=== PATIENT | female | born 1970 | race Hispanic/Latino ===

== ENCOUNTER 2017-06-23 00:26 | Emergency (ER) | payer MEDICARE, MEDICAID ==
[2017-06-23 03:15] VITALS: BP 140/89; PULSE 89; RESP 16; TEMP 98; O2SAT 98
--- NOTE | 2017-06-23 04:27 | ED PDOC ---
HPI: General Adult Time Seen by Provider: 06/23/17 03:16 Chief Complaint (Nursing): Lower Extremity Problem/Injury History Per: Patient Additional Complaint(s): Pt. c/o b/l localized ankle pain. States she does walk a lot and has been having this pain for >2 months. Denies trauma, calf pain, numbness, tingling, chest pain, SOB. Past Medical History Reviewed: Historical Data, Nursing Documentation, Vital Signs Vital Signs: Last Vital Signs Temp 98.0 F 06/23/17 03:13 Pulse 89 06/23/17 03:13 Resp 16 06/23/17 03:13 BP 140/89 06/23/17 03:13 Pulse Ox 98 06/23/17 03:13 - Family History Family History: States: No Known Family Hx - Allergies Allergies/Adverse Reactions: Allergies Allergy/AdvReac Type Severity Reaction Status Date / Time No Known Allergies Allergy Verified 06/23/17 03:15 Review of Systems ROS Statement: Except As Marked, All Systems Reviewed And Found Negative Physical Exam - Physical Exam Appears: Positive for: Well, Non-toxic, No Acute Distress Skin: Positive for: Normal Color, Warm. Negative for: Rash Pulses-Dorsalis Pedis (L): 2+ Pulses-Dorsalis Pedis (R): 2+ Extremity: Positive for: Normal ROM (FROM actively of both ankles), Other (both ankles without swelling, tenderness, warmth, erythema, or deformity). Negative for: Pedal Edema (b/l), Calf Tenderness (b/l) Neurologic/Psych: Positive for: Alert, Oriented - ECG O2 Sat by Pulse Oximetry: 98 - Progress ED Course And Treament: Tylenol 975mg PO ordered. Pt. instructed to f/u with [facility] or podiatry clinic for further evaluation. Disposition - Clinical Impression Clinical Impression: Ankle pain - Patient ED Disposition Is Patient to be Admitted: No - Disposition Referrals: [facility] [Outside] Podiatry Clinic [Outside] Disposition: Routine/Home Disposition Time: 02:30 Condition: STABLE Instructions: Joint Pain Print Language: DANISH
== END 2017-06-23 05:37 | disposition home or self-care (01) ==
LOC: H.ER 00:26
DX: M25.571 Pain in right ankle and joints of right foot (principal); M25.572 Pain in left ankle and joints of left foot

== ENCOUNTER 2017-08-16 01:35 | Emergency (ER) | payer MEDICARE, MEDICAID ==
[2017-08-16 01:36] VITALS: BMI 34.4
[2017-08-16 01:56] VITALS: BP 136/83; PULSE 74; RESP 17; TEMP 97.8; O2SAT 98
--- NOTE | 2017-08-16 02:01 | ED PDOC ---
Lower Extremity Pain/Injury Time Seen by Provider: 08/16/17 01:54 Chief Complaint (Nursing): Lower Extremity Problem/Injury Chief Complaint (Provider): leg pain History Per: Patient Additional Complaint(s): 47 year old non-domiciled female presents with right leg pain that started earlier today. Patient denies any trauma or injury. Patient did not take any meds for pain relief. Patient is well known to ED for frequent visits. Past Medical History Reviewed: Historical Data, Nursing Documentation, Vital Signs - Medical History PMH: Bipolar Disorder, Depression, HTN, Hypothyroidism, Schizophrenia - Surgical History Surgical History: Cholecystectomy - Family History Family History: States: No Known Family Hx - Living Arrangements Living Arrangements: Other (non-domiciled) - Social History Current smoker - smoking cessation education provided: No Alcohol: None Drugs: Denies - Home Medications Home Medications: Ambulatory Orders Medication Instructions Recorded hydroCHLOROthiazide [Hydrodiuril] 25 mg PO DAILY #30 tab 05/05/17 Hydrochlorothiazide [Microzide] 25 mg PO DAILY #60 cap 07/11/17 Potassium Chloride 10 meq PO DAILY #30 capsule.er 07/11/17 Azithromycin [Zithromax] 250 mg PO DAILY #6 tab 07/25/17 DiphenhydrAMINE [Benadryl] 25 mg PO Q6H #1 bottle 07/25/17 Hydrocortisone [Hydrocortisone 1 applic TOP TID #1 tube 07/25/17 2.5% Cream] Ibuprofen [Motrin] 600 mg PO Q6 PRN #20 tab 08/16/17 - Allergies Allergies/Adverse Reactions: Allergies Allergy/AdvReac Type Severity Reaction Status Date / Time divalproex sodium Allergy RASH Verified 07/25/17 21:28 [From Depakote] haloperidol [From Haldol] Allergy RASH Verified 07/25/17 21:28 haloperidol lactate Allergy RASH Verified 07/25/17 21:28 [From Haldol] olanzapine [From Zyprexa] Allergy RASH Verified 07/25/17 21:28 risperidone [From Risperdal] Allergy RASH Verified 07/25/17 21:28 Wells Criteria for PE - Wells Criteria for Pulmonary Embolism Clinical Signs and Symptoms of DVT: No P.E is #1 Diagnosis, or Equally Likely: No Heart Rate >100: No Immobilization at least 3 days;Surgery previous 4 weeks: No Previous, objectively diagnosed PE or DVT: No Hemoptysis: No Malignancy w/treatment within 6 months, or palliative: No Total Score: 0 Review of Systems ROS Statement: Except As Marked, All Systems Reviewed And Found Negative Musculoskeletal: Positive for: Other (right leg pain x 1 day, no trauma or injury) Physical Exam - Reviewed Nursing Documentation Reviewed: Yes Vital Signs Reviewed: Yes - Physical Exam Appears: Positive for: Well, Non-toxic, No Acute Distress Skin: Negative for: Rash Eye Exam: Positive for: Normal appearance Cardiovascular/Chest: Positive for: Regular Rate, Rhythm Respiratory: Positive for: Normal Breath Sounds Extremity: Positive for: Other (full rom right lower extremity, no calf swelling or tenderness, normal distal sensation) Neurologic/Psych: Positive for: Alert, Oriented - ECG O2 Sat by Pulse Oximetry: 98 Pulse Ox Interpretation: Normal Medical Decision Making Medical Decision Makin47 year old with right leg pain, denies trauma Plan: PO motrin Patient given rx motrin, she was referred to clinic for follow up. Disposition - Clinical Impression Clinical Impression: Right leg pain - Patient ED Disposition Is Patient to be Admitted: No Counseled Patient/Family Regarding: Diagnosis, Need For Followup, Rx Given - Disposition Referrals: [facility] [Outside] Disposition: Routine/Home Disposition Time: 02:13 Condition: STABLE Additional Instructions: Take rx meds as directed as needed for pain. Follow up with clinic in 2-3 days. Prescriptions: Ibuprofen [Motrin] 600 mg PO Q6 PRN #20 tab PRN Reason: Pain, Moderate (4-7) Instructions: Muscle and Bone Pain (DC) Forms: [employer] (Icelandic)
== END 2017-08-16 02:20 | disposition home or self-care (01) ==
LOC: H.ER 01:35
DX: M79.604 Pain in right leg (principal); Z86.59 Personal history of other mental and behavioral disorders; I10 Essential (primary) hypertension; E03.9 Hypothyroidism, unspecified

== ENCOUNTER 2017-09-14 00:55 | Emergency (ER) | payer MEDICARE, MEDICAID ==
[2017-09-14 00:56] VITALS: BMI 34.4
[2017-09-14 01:10] VITALS: RESP 16; TEMP 98.5
--- NOTE | 2017-09-14 02:36 | ED PDOC ---
HPI: Hypertension/Hypotension Time Seen by Provider: 09/14/17 01:41 Chief Complaint (Nursing): High Blood Pressure History Per: Patient History/Exam Limitations: no limitations Additional Complaint(s): 47 yo F w/ PMH of HTN, presents requesting for a refill of her HCTZ 25 mg PO daily and KCl 10mEq PO daily. States that she ran out of both yesterday. Denies any headache, dizziness, CP, SOB, palpitations, N/V. Has no additional complaints. Past Medical History Vital Signs: Last Vital Signs Temp 98.5 F 09/14/17 01:08 Pulse 77 09/14/17 01:08 Resp 16 09/14/17 01:08 BP 152/104 H 09/14/17 01:08 Pulse Ox 96 09/14/17 01:08 - Medical History PMH: Bipolar Disorder, Depression, HTN, Hypothyroidism, Schizophrenia Denies: Diabetes, Hepatitis, HIV, Chronic Kidney Disease, Seizures, Sexually Transmitted Disease - Surgical History Surgical History: Cholecystectomy - Family History Family History: States: Unknown Family Hx - Home Medications Home Medications: Ambulatory Orders Medication Instructions Recorded hydroCHLOROthiazide [Hydrodiuril] 25 mg PO DAILY #30 tab 05/05/17 Hydrochlorothiazide [Microzide] 25 mg PO DAILY #60 cap 07/11/17 Potassium Chloride 10 meq PO DAILY #30 capsule.er 07/11/17 Azithromycin [Zithromax] 250 mg PO DAILY #6 tab 07/25/17 DiphenhydrAMINE [Benadryl] 25 mg PO Q6H #1 bottle 07/25/17 Hydrocortisone [Hydrocortisone 1 applic TOP TID #1 tube 07/25/17 2.5% Cream] Ibuprofen [Motrin] 600 mg PO Q6 PRN #20 tab 08/16/17 Potassium Chloride [Klor-Con 10 meq PO DAILY #30 capsule.er 09/14/17 Sprinkle] hydroCHLOROthiazide [Hydrodiuril] 25 mg PO DAILY #30 tab 09/14/17 - Allergies Allergies/Adverse Reactions: Allergies Allergy/AdvReac Type Severity Reaction Status Date / Time divalproex sodium Allergy RASH Verified 07/25/17 21:28 [From Depakote] haloperidol [From Haldol] Allergy RASH Verified 07/25/17 21:28 haloperidol lactate Allergy RASH Verified 07/25/17 21:28 [From Haldol] olanzapine [From Zyprexa] Allergy RASH Verified 07/25/17 21:28 risperidone [From Risperdal] Allergy RASH Verified 07/25/17 21:28 Review of Systems Constitutional: Negative for: Fever, Malaise Cardiovascular: Negative for: Chest Pain, Palpitations, Edema Respiratory: Negative for: Cough, Shortness of Breath Musculoskeletal: Negative for: Neck Pain, Back Pain Skin: Negative for: Rash Neurological: Negative for: Weakness, Numbness, Headache, Dizziness Physical Exam - Reviewed Vital Signs Reviewed: Yes - Physical Exam Appears: Positive for: Well, Non-toxic, No Acute Distress Head Exam: Positive for: ATRAUMATIC, NORMAL INSPECTION, NORMOCEPHALIC Skin: Positive for: Normal Color, Warm, DRY Eye Exam: Positive for: EOMI, Normal appearance, PERRL ENT: Positive for: Normal ENT Inspection Neck: Positive for: Normal, Painless ROM Cardiovascular/Chest: Positive for: Regular Rate, Rhythm Respiratory: Positive for: CNT, Normal Breath Sounds Gastrointestinal/Abdominal: Positive for: Normal Exam, Soft Back: Positive for: Normal Inspection Extremity: Positive for: Normal ROM. Negative for: Tenderness, Swelling Neurologic/Psych: Positive for: Alert, freight associate II-XII, Oriented. Negative for: Motor/Sensory Deficits, Facial Droop - ECG O2 Sat by Pulse Oximetry: 96 Medical Decision Making Medical Decision Making: Patient instructed to follow-up with pmd or the clinic in 1-2 days without fail. Rx refills provided. Return to the emergency room at any time for any new or worsening symptoms. Verbalized and repeated discharge instructions and plan. I have given the patient opportunity to ask any additional questions. Disposition - Clinical Impression Clinical Impression: Hypertension - Patient ED Disposition Is Patient to be Admitted: No Counseled Patient/Family Regarding: Diagnosis, Need For Followup, Rx Given - Disposition Referrals: [facility] [Outside] Disposition: Routine/Home Disposition Time: 02:15 Condition: STABLE Prescriptions: hydroCHLOROthiazide [Hydrodiuril] 25 mg PO DAILY #30 tab Potassium Chloride [Klor-Con Sprinkle] 10 meq PO DAILY #30 capsule.er Instructions: High Blood Pressure (DC), Low Salt Diet Forms: [employer] (Czech) - PA / [employer]HANGER [employer]INTER / Resident Statement MD/DO has reviewed & agrees with the documentation as recorded.
[2017-09-14 02:51] VITALS: BP 156/97; PULSE 63
[2017-09-14 03:48] VITALS: O2SAT 96
== END 2017-09-14 03:15 | disposition home or self-care (01) ==
LOC: H.ER 00:55
DX: I10 Essential (primary) hypertension (principal); E03.9 Hypothyroidism, unspecified; F20.9 Schizophrenia, unspecified; F31.9 Bipolar disorder, unspecified

== ENCOUNTER 2017-10-18 21:58 | Emergency (ER) | payer MEDICAID ==
--- NOTE | 2017-10-18 23:06 | ED PDOC ---
HPI: General Adult Time Seen by Provider: 10/18/17 23:05 Chief Complaint (Provider): med refill History Per: Patient Additional Complaint(s): 47-year-old female presents to emergency department requesting refill of HTN med. Patient takes HCTZ 25 mg PO daily. She took last dose today and offers no acute complaints. Past Medical History Reviewed: Historical Data, Nursing Documentation, Vital Signs Vital Signs: Last Vital Signs Temp 97.9 F 10/18/17 23:08 Pulse 78 10/18/17 23:08 Resp 18 10/18/17 23:08 BP 154/90 H 10/18/17 23:08 Pulse Ox 99 10/18/17 23:08 - Medical History PMH: HTN - Family History Family History: States: No Known Family Hx - Living Arrangements Living Arrangements: Other (non-domiciled) - Social History Current smoker - smoking cessation education provided: No Alcohol: None Drugs: Denies - Home Medications Home Medications: Ambulatory Orders Medication Instructions Recorded hydroCHLOROthiazide [Hydrodiuril] 25 mg PO DAILY #30 tab 10/18/17 - Allergies Allergies/Adverse Reactions: Allergies Allergy/AdvReac Type Severity Reaction Status Date / Time divalproex sodium Allergy SWELLING Verified 10/18/17 23:08 [From Depakote] Review of Systems ROS Statement: Except As Marked, All Systems Reviewed And Found Negative Constitutional: Negative for: Fever Eyes: Negative for: Vision Change Cardiovascular: Negative for: Chest Pain Gastrointestinal: Negative for: Nausea, Vomiting Neurological: Negative for: Headache, Dizziness Physical Exam - Reviewed Nursing Documentation Reviewed: Yes Vital Signs Reviewed: Yes - Physical Exam Appears: Positive for: Well, Non-toxic, No Acute Distress Skin: Positive for: Normal Color. Negative for: Rash Eye Exam: Positive for: Normal appearance Cardiovascular/Chest: Positive for: Regular Rate, Rhythm Respiratory: Positive for: Normal Breath Sounds. Negative for: Respiratory Distress Neurologic/Psych: Positive for: Alert, Oriented - ECG O2 Sat by Pulse Oximetry: 99 Pulse Ox Interpretation: Normal Medical Decision Making Medical Decision Makin47 year old here for med refill Patient was given rx HCTZ 25 mg PO daily. She was referred to clinic for follow up. Disposition - Clinical Impression Clinical Impression: Medicine refill - Patient ED Disposition Is Patient to be Admitted: No - Disposition Referrals: [facility] [Outside] Disposition: Routine/Home Disposition Time: 23:06 Condition: STABLE Additional Instructions: TAKE RX MEDS DIRECTED. FOLLOW UP WITH CLINIC. Prescriptions: hydroCHLOROthiazide [Hydrodiuril] 25 mg PO DAILY #30 tab Instructions: High Blood Pressure in Adults
[2017-10-18 23:12] VITALS: BP 154/90; PULSE 78; RESP 18; TEMP 97.9; O2SAT 99
== END 2017-10-18 23:24 | disposition home or self-care (01) ==
LOC: MERGE 21:58 → H.ER 21:58
DX: Z76.0 Encounter for issue of repeat prescription (principal); I10 Essential (primary) hypertension

== ENCOUNTER 2017-11-19 01:08 | Emergency (ER) | payer MEDICARE, MEDICAID ==
[2017-11-19 01:08] VITALS: BMI 34.4
[2017-11-19 01:20] VITALS: BP 137/94; PULSE 63; RESP 16; TEMP 98; O2SAT 98
--- NOTE | 2017-11-19 01:38 | ED PDOC ---
HPI: General Adult Time Seen by Provider: 11/19/17 01:30 Chief Complaint (Nursing): Med Refill Chief Complaint (Provider): medication refill History Per: Patient History/Exam Limitations: no limitations Additional Complaint(s): 47 y/o female presents for medication refill for her hydrochlorothiazide blood pressure medication. Patient denies acute medical or psychiatric complaints. Past Medical History Reviewed: Historical Data, Nursing Documentation, Vital Signs Vital Signs: Last Vital Signs Temp 98 F 11/19/17 01:19 Pulse 63 11/19/17 01:19 Resp 16 11/19/17 01:19 BP 137/94 H 11/19/17 01:19 Pulse Ox 98 11/19/17 01:40 - Medical History PMH: Bipolar Disorder, Depression, HTN, Hypothyroidism, Schizophrenia Denies: Diabetes, Hepatitis, HIV, Chronic Kidney Disease, Seizures, Sexually Transmitted Disease - Surgical History Surgical History: Cholecystectomy - Family History Family History: States: Unknown Family Hx - Home Medications Home Medications: Ambulatory Orders Medication Instructions Recorded hydroCHLOROthiazide [Hydrodiuril] 25 mg PO DAILY #30 tab 05/05/17 Hydrochlorothiazide [Microzide] 25 mg PO DAILY #60 cap 07/11/17 Potassium Chloride 10 meq PO DAILY #30 capsule.er 07/11/17 Azithromycin [Zithromax] 250 mg PO DAILY #6 tab 07/25/17 DiphenhydrAMINE [Benadryl] 25 mg PO Q6H #1 bottle 07/25/17 Hydrocortisone [Hydrocortisone 1 applic TOP TID #1 tube 07/25/17 2.5% Cream] Ibuprofen [Motrin] 600 mg PO Q6 PRN #20 tab 08/16/17 Potassium Chloride [Klor-Con 10 meq PO DAILY #30 capsule.er 09/14/17 Sprinkle] hydroCHLOROthiazide [Hydrodiuril] 25 mg PO DAILY #30 tab 09/14/17 hydroCHLOROthiazide [Hydrodiuril] 25 mg PO DAILY #30 tab 10/18/17 hydroCHLOROthiazide [Hydrodiuril] 25 mg PO DAILY #15 tab 11/19/17 - Allergies Allergies/Adverse Reactions: Allergies Allergy/AdvReac Type Severity Reaction Status Date / Time divalproex sodium Allergy RASH Verified 11/19/17 01:18 [From Depakote] haloperidol [From Haldol] Allergy RASH Verified 11/19/17 01:18 haloperidol lactate Allergy RASH Verified 11/19/17 01:18 [From Haldol] olanzapine [From Zyprexa] Allergy RASH Verified 11/19/17 01:18 risperidone [From Risperdal] Allergy RASH Verified 11/19/17 01:18 Review of Systems ROS Statement: Except As Marked, All Systems Reviewed And Found Negative Physical Exam - Reviewed Nursing Documentation Reviewed: Yes Vital Signs Reviewed: Yes - Physical Exam Appears: Positive for: Well, Non-toxic, No Acute Distress (sleeping) Head Exam: Positive for: ATRAUMATIC, NORMAL INSPECTION, NORMOCEPHALIC Skin: Positive for: Normal Color Eye Exam: Positive for: Normal appearance ENT: Positive for: Normal ENT Inspection Cardiovascular/Chest: Positive for: Regular Rate, Rhythm Respiratory: Positive for: Normal Breath Sounds Gastrointestinal/Abdominal: Positive for: Normal Exam Back: Positive for: Normal Inspection Extremity: Positive for: Normal ROM Neurologic/Psych: Positive for: Alert, Oriented - ECG O2 Sat by Pulse Oximetry: 98 - Progress ED Course And Treament: Patient educated on findings, rx hctz provided Advised follow up PMD 2-3 days Return precautions given Disposition - Clinical Impression Clinical Impression: Medication refill - Patient ED Disposition Is Patient to be Admitted: No Counseled Patient/Family Regarding: Diagnosis, Need For Followup, Rx Given - Disposition Disposition: Routine/Home Disposition Time: 01:41 Condition: GOOD Prescriptions: hydroCHLOROthiazide [Hydrodiuril] 25 mg PO DAILY #15 tab Instructions: Hydrochlorothiazide
== END 2017-11-19 02:12 | disposition home or self-care (01) ==
LOC: H.ER 01:08
DX: Z76.0 Encounter for issue of repeat prescription (principal); E03.9 Hypothyroidism, unspecified; F20.9 Schizophrenia, unspecified; F31.9 Bipolar disorder, unspecified; I10 Essential (primary) hypertension

== ENCOUNTER 2017-12-06 22:17 | Emergency (ER) | payer MEDICARE, MEDICAID ==
[2017-12-06 22:17] VITALS: BMI 34.4
--- NOTE | 2017-12-06 23:36 | ED PDOC ---
HPI: Skin/Bite Injury Time Seen by Provider: 12/06/17 23:10 Chief Complaint (Nursing): Abnormal Skin Integrity Chief Complaint (Provider): Rash History Per: Patient Additional Complaint(s): Pt is a 47 yo female, well known to ED staff, presents to ED with complaints of itchy red rash to her neck after wearing a fake gold necklace. No medications taken thus far. Past Medical History Reviewed: Nursing Documentation, Vital Signs Vital Signs: Last Vital Signs Temp 98.2 F 12/06/17 22:26 Pulse 63 12/06/17 22:26 Resp 19 12/06/17 22:26 BP Pulse Ox 98 12/06/17 22:26 - Medical History PMH: Bipolar Disorder, Depression, HTN, Hypothyroidism, Schizophrenia Denies: Diabetes, Hepatitis, HIV, Chronic Kidney Disease, Seizures, Sexually Transmitted Disease - Surgical History Surgical History: Cholecystectomy - Family History Family History: States: Unknown Family Hx - Living Arrangements Living Arrangements: Other - Social History Current smoker - smoking cessation education provided: No Alcohol: None Drugs: Denies - Home Medications Home Medications: Ambulatory Orders Medication Instructions Recorded hydroCHLOROthiazide [Hydrodiuril] 25 mg PO DAILY #30 tab 05/05/17 Hydrochlorothiazide [Microzide] 25 mg PO DAILY #60 cap 07/11/17 Potassium Chloride 10 meq PO DAILY #30 capsule.er 07/11/17 Azithromycin [Zithromax] 250 mg PO DAILY #6 tab 07/25/17 DiphenhydrAMINE [Benadryl] 25 mg PO Q6H #1 bottle 07/25/17 Hydrocortisone [Hydrocortisone 1 applic TOP TID #1 tube 07/25/17 2.5% Cream] Ibuprofen [Motrin] 600 mg PO Q6 PRN #20 tab 08/16/17 Potassium Chloride [Klor-Con 10 meq PO DAILY #30 capsule.er 09/14/17 Sprinkle] hydroCHLOROthiazide [Hydrodiuril] 25 mg PO DAILY #30 tab 09/14/17 hydroCHLOROthiazide [Hydrodiuril] 25 mg PO DAILY #30 tab 10/18/17 hydroCHLOROthiazide [Hydrodiuril] 25 mg PO DAILY #15 tab 11/19/17 DiphenhydrAMINE [Benadryl] 50 mg PO Q4 PRN #30 cap 12/06/17 Hydrocortisone 1% Cream [Cortizone 1 dap TOP BID #1 tube 12/06/17 1% Cream] - Allergies Allergies/Adverse Reactions: Allergies Allergy/AdvReac Type Severity Reaction Status Date / Time divalproex sodium Allergy RASH Verified 11/19/17 01:18 [From Depakote] haloperidol [From Haldol] Allergy RASH Verified 11/19/17 01:18 haloperidol lactate Allergy RASH Verified 11/19/17 01:18 [From Haldol] olanzapine [From Zyprexa] Allergy RASH Verified 11/19/17 01:18 risperidone [From Risperdal] Allergy RASH Verified 11/19/17 01:18 Review of Systems ROS Statement: Except As Marked, All Systems Reviewed And Found Negative Skin: Positive for: Rash Physical Exam - Reviewed Nursing Documentation Reviewed: Yes Vital Signs Reviewed: Yes - Physical Exam Appears: Positive for: Well, Non-toxic, No Acute Distress Head Exam: Positive for: ATRAUMATIC, NORMAL INSPECTION, NORMOCEPHALIC Skin: Positive for: Normal Color, Warm, Rash (eryhtematous papules around neck) Eye Exam: Positive for: EOMI, Normal appearance, PERRL ENT: Positive for: Normal ENT Inspection Neck: Positive for: Normal, Painless ROM Cardiovascular/Chest: Positive for: Regular Rate, Rhythm Respiratory: Positive for: CNT, Normal Breath Sounds Gastrointestinal/Abdominal: Positive for: Normal Exam, Soft Back: Positive for: Normal Inspection Extremity: Positive for: Normal ROM Neurologic/Psych: Positive for: Alert, Oriented - ECG O2 Sat by Pulse Oximetry: 98 Medical Decision Making Medical Decision Making: Benadryl 50 mg admisnitered, as well as hydrocortisone cream Disposition - Clinical Impression Clinical Impression: Contact dermatitis - Patient ED Disposition Is Patient to be Admitted: No - Disposition Disposition: Routine/Home Disposition Time: 23:38 Condition: STABLE Prescriptions: DiphenhydrAMINE [Benadryl] 50 mg PO Q4 PRN #30 cap PRN Reason: Rash Hydrocortisone 1% Cream [Cortizone 1% Cream] 1 dap TOP BID #1 tube Instructions: Contact Dermatitis (DC) Forms: [employer] (Mauritian)
[2017-12-06 23:48] VITALS: BP 130/87; PULSE 78; RESP 18; TEMP 98; O2SAT 100
== END 2017-12-06 23:54 | disposition home or self-care (01) ==
LOC: H.ER 22:17
DX: L25.9 Unspecified contact dermatitis, unspecified cause (principal); E03.9 Hypothyroidism, unspecified; F20.9 Schizophrenia, unspecified; F31.9 Bipolar disorder, unspecified; I10 Essential (primary) hypertension

== ENCOUNTER 2018-03-04 19:09 | Emergency (ER) | payer MEDICARE, MEDICAID ==
[2018-03-04 19:09] VITALS: BMI 36.4
[2018-03-04 19:17] VITALS: RESP 18; TEMP 97.8
--- NOTE | 2018-03-04 23:17 | ED PDOC ---
Lower Extremity Pain/Injury Time Seen by Provider: 03/04/18 22:21 Chief Complaint (Nursing): Lower Extremity Problem/Injury Chief Complaint (Provider): left leg pain History Per: Patient History/Exam Limitations: no limitations Additional Complaint(s): 48 y/o female presents with posterior left knee pain x 3 days. States she has been doing a lot of walking. Denies known trauma, fall, numbness/weakness left lower extremity, calf pain/tenderness. Past Medical History Reviewed: Historical Data, Nursing Documentation, Vital Signs Vital Signs: Last Vital Signs Temp 97.8 F 03/04/18 19:16 Pulse 66 03/04/18 19:16 Resp 18 03/04/18 19:16 BP 118/76 03/04/18 19:16 Pulse Ox 100 03/04/18 19:16 - Medical History PMH: Bipolar Disorder, Depression, HTN, Hypothyroidism, Schizophrenia Denies: Diabetes, Hepatitis, HIV, Chronic Kidney Disease, Seizures, Sexually Transmitted Disease - Surgical History Surgical History: Cholecystectomy - Family History Family History: States: Unknown Family Hx - Home Medications Home Medications: Ambulatory Orders Medication Instructions Recorded hydroCHLOROthiazide [Hydrodiuril] 25 mg PO DAILY #30 tab 05/05/17 Hydrochlorothiazide [Microzide] 25 mg PO DAILY #60 cap 07/11/17 Potassium Chloride 10 meq PO DAILY #30 capsule.er 07/11/17 Azithromycin [Zithromax] 250 mg PO DAILY #6 tab 07/25/17 DiphenhydrAMINE [Benadryl] 25 mg PO Q6H #1 bottle 07/25/17 Hydrocortisone [Hydrocortisone 1 applic TOP TID #1 tube 07/25/17 2.5% Cream] Ibuprofen [Motrin] 600 mg PO Q6 PRN #20 tab 08/16/17 Potassium Chloride [Klor-Con 10 meq PO DAILY #30 capsule.er 09/14/17 Sprinkle] hydroCHLOROthiazide [Hydrodiuril] 25 mg PO DAILY #30 tab 09/14/17 hydroCHLOROthiazide [Hydrodiuril] 25 mg PO DAILY #30 tab 10/18/17 hydroCHLOROthiazide [Hydrodiuril] 25 mg PO DAILY #15 tab 11/19/17 DiphenhydrAMINE [Benadryl] 50 mg PO Q4 PRN #30 cap 12/06/17 Hydrocortisone 1% Cream [Cortizone 1 dap TOP BID #1 tube 12/06/17 1% Cream] Ibuprofen [Motrin Tab] 1 tab PO Q6 PRN #15 tab 03/05/18 - Allergies Allergies/Adverse Reactions: Allergies Allergy/AdvReac Type Severity Reaction Status Date / Time divalproex sodium Allergy RASH Verified 03/04/18 19:14 [From Depakote] haloperidol [From Haldol] Allergy RASH Verified 03/04/18 19:14 haloperidol lactate Allergy RASH Verified 03/04/18 19:14 [From Haldol] olanzapine [From Zyprexa] Allergy RASH Verified 03/04/18 19:14 risperidone [From Risperdal] Allergy RASH Verified 03/04/18 19:14 Review of Systems ROS Statement: Except As Marked, All Systems Reviewed And Found Negative Musculoskeletal: Positive for: Leg Pain Physical Exam - Reviewed Nursing Documentation Reviewed: Yes Vital Signs Reviewed: Yes - Physical Exam Appears: Positive for: Well, Non-toxic, No Acute Distress (sleeping) Head Exam: Positive for: ATRAUMATIC, NORMAL INSPECTION, NORMOCEPHALIC Skin: Positive for: Normal Color Eye Exam: Positive for: Normal appearance ENT: Positive for: Normal ENT Inspection Cardiovascular/Chest: Positive for: Regular Rate, Rhythm Respiratory: Positive for: Normal Breath Sounds Gastrointestinal/Abdominal: Positive for: Normal Exam Extremity: Positive for: Normal ROM, Tenderness (posterior left knee), Swelling (b/l chrnoic LE edema). Negative for: Calf Tenderness Neurologic/Psych: Positive for: Alert, Oriented (x3) - ECG O2 Sat by Pulse Oximetry: 100 - Progress ED Course And Treament: ibuprofen, venous duplex LLE Left lower extremity venous duplex. Indication: Pain. Findings: Real-time ultrasound images of the deep venous system with Doppler evaluation. Normal compression, spontaneity and augmentation. Normal color Doppler. No intraluminal thrombus is seen. IMPRESSION: No evidence of deep venous thrombosis TEN wrap applied to left knee Patient educated on findings, discharged with rx ibuprofen Advised RICE follow up PMD/ortho Return precautions given Disposition - Clinical Impression Clinical Impression: Knee pain - Patient ED Disposition Is Patient to be Admitted: No Counseled Patient/Family Regarding: Studies Performed, Diagnosis, Need For Followup - Disposition Referrals: Rob Wheatley III, MD [Staff Provider] - Disposition: Routine/Home Disposition Time: 02:49 Condition: IMPROVED Prescriptions: Ibuprofen [Motrin Tab] 1 tab PO Q6 PRN #15 tab PRN Reason: Pain, Moderate (4-7) Instructions: Knee Pain
[2018-03-05 06:40] VITALS: BP 101/63; PULSE 77; O2SAT 99
--- NOTE | 2018-03-05 13:40 | US ---
Left lower extremity ultrasound. Indication: Posterior knee pain Technique: Duplex ultrasound evaluation of the left lower extremity Comparison: None available Findings: There is normal flow, compressibility, and augmentation of the left common femoral, femoral, and popliteal veins. The left posterior tibial veins appear patent. Impression: No evidence of deep venous thrombosis in the left lower extremity. Preliminary impression was provided by [employer].
== END 2018-03-05 03:05 | disposition home or self-care (01) ==
LOC: H.ER 19:09
DX: M25.562 Pain in left knee (principal); E03.9 Hypothyroidism, unspecified; F31.9 Bipolar disorder, unspecified; I10 Essential (primary) hypertension

== ENCOUNTER 2018-04-03 21:00 | Emergency (ER) | payer MEDICARE, MEDICAID ==
[2018-04-03 21:01] VITALS: BMI 36.4
[2018-04-03 21:07] VITALS: BP 141/94; PULSE 75; RESP 16; TEMP 97.6; O2SAT 100
--- NOTE | 2018-04-03 21:21 | ED PDOC ---
Lower Extremity Pain/Injury Time Seen by Provider: 04/03/18 21:08 Chief Complaint (Nursing): Lower Extremity Problem/Injury Chief Complaint (Provider): left knee pain History Per: Patient Additional Complaint(s): 48-year-old female presents with left knee pain ongoing for 2 months. Patient states the pain is localized to patellar region. She was seen for same issue one month ago in this ED and had an ultrasound of leg done at that time which was negative for DVT. Patient has been taking Motrin which has not helped. She denies recent fall or trauma. PMD: Dr. Das Past Medical History Reviewed: Historical Data, Nursing Documentation, Vital Signs Vital Signs: Last Vital Signs Temp 97.6 F 04/03/18 21:05 Pulse 75 04/03/18 21:05 Resp 16 04/03/18 21:05 BP 141/94 H 04/03/18 21:05 Pulse Ox 100 04/03/18 21:05 - Medical History PMH: Bipolar Disorder, Depression, HTN, Hypothyroidism, Schizophrenia - Surgical History Surgical History: Cholecystectomy - Family History Family History: States: Unknown Family Hx - Living Arrangements Living Arrangements: Other (non-domiciled) - Social History Current smoker - smoking cessation education provided: No Alcohol: None Drugs: Denies - Home Medications Home Medications: Ambulatory Orders Medication Instructions Recorded hydroCHLOROthiazide [Hydrodiuril] 25 mg PO DAILY #30 tab 05/05/17 Hydrochlorothiazide [Microzide] 25 mg PO DAILY #60 cap 07/11/17 Potassium Chloride 10 meq PO DAILY #30 capsule.er 07/11/17 Azithromycin [Zithromax] 250 mg PO DAILY #6 tab 07/25/17 DiphenhydrAMINE [Benadryl] 25 mg PO Q6H #1 bottle 07/25/17 Hydrocortisone [Hydrocortisone 1 applic TOP TID #1 tube 07/25/17 2.5% Cream] Ibuprofen [Motrin] 600 mg PO Q6 PRN #20 tab 08/16/17 Potassium Chloride [Klor-Con 10 meq PO DAILY #30 capsule.er 09/14/17 Sprinkle] hydroCHLOROthiazide [Hydrodiuril] 25 mg PO DAILY #30 tab 09/14/17 hydroCHLOROthiazide [Hydrodiuril] 25 mg PO DAILY #30 tab 10/18/17 hydroCHLOROthiazide [Hydrodiuril] 25 mg PO DAILY #15 tab 11/19/17 DiphenhydrAMINE [Benadryl] 50 mg PO Q4 PRN #30 cap 12/06/17 Hydrocortisone 1% Cream [Cortizone 1 dap TOP BID #1 tube 12/06/17 1% Cream] Ibuprofen [Motrin Tab] 1 tab PO Q6 PRN #15 tab 03/05/18 Meloxicam [Mobic] 15 mg PO DAILY #30 tab 04/03/18 - Allergies Allergies/Adverse Reactions: Allergies Allergy/AdvReac Type Severity Reaction Status Date / Time divalproex sodium Allergy RASH Verified 04/03/18 21:05 [From Depakote] haloperidol [From Haldol] Allergy RASH Verified 04/03/18 21:05 haloperidol lactate Allergy RASH Verified 04/03/18 21:05 [From Haldol] olanzapine [From Zyprexa] Allergy RASH Verified 04/03/18 21:05 risperidone [From Risperdal] Allergy RASH Verified 04/03/18 21:05 Wells Criteria for PE - Wells Criteria for Pulmonary Embolism Clinical Signs and Symptoms of DVT: No P.E is #1 Diagnosis, or Equally Likely: No Heart Rate >100: No Immobilization at least 3 days;Surgery previous 4 weeks: No Previous, objectively diagnosed PE or DVT: No Hemoptysis: No Malignancy w/treatment within 6 months, or palliative: No Total Score: 0 Review of Systems ROS Statement: Except As Marked, All Systems Reviewed And Found Negative Musculoskeletal: Positive for: Leg Pain (left knee pain) Physical Exam - Reviewed Nursing Documentation Reviewed: Yes Vital Signs Reviewed: Yes - Physical Exam Appears: Positive for: Well, Non-toxic, No Acute Distress Skin: Positive for: Normal Color Eye Exam: Positive for: Normal appearance Extremity: Positive for: Pedal Edema (chronic 2+ bilateral), Other (Tenderness to left patellar region, full range of motion left knee with pain). Negative for: Calf Tenderness Neurologic/Psych: Positive for: Alert, Oriented - ECG O2 Sat by Pulse Oximetry: 100 Pulse Ox Interpretation: Normal - Other Rad Left knee x-ray X-Ray: Interpreted by Me, Viewed By Me X-Ray Interpretation: mild degenerative changes, no fx, no dis Medical Decision Making Medical Decision Makin48 y/o with left knee pain Plan: IM toradol PO tylenol X-ray left knee Patient aware of x-ray results. She was referred advised to follow up with PMD or ortho for further evaluation of ongoing left knee pain. Disposition - Clinical Impression Clinical Impression: Chronic knee pain - Patient ED Disposition Is Patient to be Admitted: No Counseled Patient/Family Regarding: Studies Performed, Diagnosis, Need For Followup, Rx Given - Disposition Referrals: Skip Das MD [Staff Provider] - Kelvin Miilan MD [Staff Provider] - Disposition: Routine/Home Disposition Time: 21:24 Condition: STABLE Additional Instructions: Ice, rest and elevate affected area, take meds as directed. Follow up with specialist. Prescriptions: Meloxicam [Mobic] 15 mg PO DAILY #30 tab Instructions: Chronic Knee Pain Forms: [facility] ([place])
--- NOTE | 2018-04-04 10:34 | RAD ---
Date of service: 04/03/2018 PROCEDURE: Left Knee Radiographs. HISTORY: Pain. COMPARISON: None. FINDINGS: BONES: No acute fracture or destructive bony lesion identified. JOINTS: No subluxation or dislocation identified. Joint space narrowing the medial femorotibial compartment is appreciated as well as limited lateral femorotibial compartment osteophytes. Patellofemoral articulation is also narrowed. JOINT EFFUSION: [id number] pseudo bursa effusion suggested. OTHER FINDINGS: None. IMPRESSION: Degenerative changes appear [id number] severity without fracture, subluxation or dislocation appreciated there is a mild to moderate suprasellar bursa effusion.
== END 2018-04-03 22:46 | disposition home or self-care (01) ==
LOC: H.ER 21:00
DX: M25.562 Pain in left knee (principal)
CPT/HCPCS: 73562; 96372; 99283; J1885

== ENCOUNTER 2018-08-07 00:31 | Emergency (ER) | payer MEDICARE, MEDICAID ==
[2018-08-07 01:18] VITALS: BMI 28.1
--- NOTE | 2018-08-07 04:33 | ED PDOC ---
Lower Extremity Pain/Injury Time Seen by Provider: 08/07/18 01:25 Chief Complaint (Nursing): Lower Extremity Problem/Injury Chief Complaint (Provider): Lower Extremity Problem/Injury History Per: Patient History/Exam Limitations: no limitations Onset/Duration Of Symptoms: Persistent Current Symptoms Are (Timing): Still Present Additional Complaint(s): 48 year old female presents to the ED initially for bilateral leg pain. Patient now offers no complaints and does not want to be seen. Past Medical History Reviewed: Historical Data, Nursing Documentation, Vital Signs Vital Signs: Last Vital Signs Temp 98.0 F 08/07/18 00:45 Pulse 73 08/07/18 00:45 Resp 18 08/07/18 00:45 BP 140/96 H 08/07/18 00:45 Pulse Ox 97 08/07/18 00:45 - Medical History PMH: Bipolar Disorder, Depression, HTN, Hypothyroidism, Schizophrenia Denies: Diabetes, Hepatitis, HIV, Chronic Kidney Disease, Seizures, Sexually Transmitted Disease - Surgical History Surgical History: Cholecystectomy - Family History Family History: States: Unknown Family Hx - Home Medications Home Medications: Ambulatory Orders Medication Instructions Recorded hydroCHLOROthiazide [Hydrodiuril] 25 mg PO DAILY #30 tab 05/05/17 Hydrochlorothiazide [Microzide] 25 mg PO DAILY #60 cap 07/11/17 Potassium Chloride 10 meq PO DAILY #30 capsule.er 07/11/17 Azithromycin [Zithromax] 250 mg PO DAILY #6 tab 07/25/17 DiphenhydrAMINE [Benadryl] 25 mg PO Q6H #1 bottle 07/25/17 Hydrocortisone [Hydrocortisone 1 applic TOP TID #1 tube 07/25/17 2.5% Cream] Ibuprofen [Motrin] 600 mg PO Q6 PRN #20 tab 08/16/17 Potassium Chloride [Klor-Con 10 meq PO DAILY #30 capsule.er 09/14/17 Sprinkle] hydroCHLOROthiazide [Hydrodiuril] 25 mg PO DAILY #30 tab 09/14/17 hydroCHLOROthiazide [Hydrodiuril] 25 mg PO DAILY #30 tab 10/18/17 hydroCHLOROthiazide [Hydrodiuril] 25 mg PO DAILY #15 tab 11/19/17 DiphenhydrAMINE [Benadryl] 50 mg PO Q4 PRN #30 cap 12/06/17 Hydrocortisone 1% Cream [Cortizone 1 dap TOP BID #1 tube 12/06/17 1% Cream] Ibuprofen [Motrin Tab] 1 tab PO Q6 PRN #15 tab 03/05/18 Meloxicam [Mobic] 15 mg PO DAILY #30 tab 04/03/18 - Allergies Allergies/Adverse Reactions: Allergies Allergy/AdvReac Type Severity Reaction Status Date / Time divalproex sodium Allergy RASH Verified 08/07/18 01:18 [From Depakote] haloperidol [From Haldol] Allergy RASH Verified 08/07/18 01:18 haloperidol lactate Allergy RASH Verified 08/07/18 01:18 [From Haldol] olanzapine [From Zyprexa] Allergy RASH Verified 08/07/18 01:18 risperidone [From Risperdal] Allergy RASH Verified 08/07/18 01:18 Review of Systems ROS Statement: Except As Marked, All Systems Reviewed And Found Negative Physical Exam - Reviewed Nursing Documentation Reviewed: Yes Vital Signs Reviewed: Yes - Physical Exam Appears: Positive for: Well, No Acute Distress (sleeping in chair) Head Exam: Positive for: ATRAUMATIC, NORMAL INSPECTION, NORMOCEPHALIC Skin: Positive for: Normal Color Extremity: Negative for: Deformity (acute deformity or abnormality) - ECG O2 Sat by Pulse Oximetry: 97 (RA) Pulse Ox Interpretation: Normal Medical Decision Making Medical Decision Makin:25 A&P: Exam and history are limited by patient's refusal to partake. Pain is likely chronic. Recommended patient to follow up with PMD or podiatry. Scribe Attestation: Documented by Angeles Wilkerson, acting as a scribe for Tal Zapata MD Provider Scribe Attestation: All medical record entries made by the Scribe were at my direction and personally dictated by me. I have reviewed the chart and agree that the record accurately reflects my personal performance of the history, physical exam, medical decision making, and the department course for this patient. I have also personally directed, reviewed, and agree with the discharge instructions and disposition. Disposition - Clinical Impression Clinical Impression: Leg pain - Patient ED Disposition Is Patient to be Admitted: No - Disposition Referrals: [facility] [Outside] Disposition: Routine/Home Disposition Time: 04:29 Condition: STABLE Instructions: Muscle and Bone Pain (DC) Forms: [employer] (Thai)
[2018-08-07 05:00] VITALS: BP 132/82; PULSE 72; RESP 16; TEMP 98.2
[2018-08-07 06:35] VITALS: O2SAT 97
== END 2018-08-07 04:59 | disposition home or self-care (01) ==
LOC: H.ER 00:31
DX: M79.606 Pain in leg, unspecified (principal); M79.605 Pain in left leg

== ENCOUNTER 2018-08-09 22:49 | Emergency (ER) | payer MEDICARE, MEDICAID ==
[2018-08-09 22:50] VITALS: BMI 28.1
--- NOTE | 2018-08-09 23:14 | ED PDOC ---
Lower Extremity Pain/Injury Time Seen by Provider: 08/09/18 23:11 Chief Complaint (Nursing): Lower Extremity Problem/Injury Chief Complaint (Provider): BILATERAL LOWER EXTREMITY EDEMA History Per: Patient (48 Y/O FEMALE UNDOMICILED HERE WITH BILATERAL LOWER EXTREMITY EDEMA ONGOING. IS ON NORVASC FOR BP. STATES SHE HAS ANKLE PAIN DUE TO SWELLING. ) Past Medical History Reviewed: Historical Data, Nursing Documentation, Vital Signs - Medical History PMH: Bipolar Disorder, Depression, HTN, Hypothyroidism, Schizophrenia Denies: Diabetes, Hepatitis, HIV, Chronic Kidney Disease, Seizures, Sexually Transmitted Disease - Surgical History Surgical History: Cholecystectomy - Family History Family History: States: Unknown Family Hx - Home Medications Home Medications: Ambulatory Orders Medication Instructions Recorded hydroCHLOROthiazide [Hydrodiuril] 25 mg PO DAILY #30 tab 05/05/17 Hydrochlorothiazide [Microzide] 25 mg PO DAILY #60 cap 07/11/17 Potassium Chloride 10 meq PO DAILY #30 capsule.er 07/11/17 Azithromycin [Zithromax] 250 mg PO DAILY #6 tab 07/25/17 DiphenhydrAMINE [Benadryl] 25 mg PO Q6H #1 bottle 07/25/17 Hydrocortisone [Hydrocortisone 1 applic TOP TID #1 tube 07/25/17 2.5% Cream] Ibuprofen [Motrin] 600 mg PO Q6 PRN #20 tab 08/16/17 Potassium Chloride [Klor-Con 10 meq PO DAILY #30 capsule.er 09/14/17 Sprinkle] hydroCHLOROthiazide [Hydrodiuril] 25 mg PO DAILY #30 tab 09/14/17 hydroCHLOROthiazide [Hydrodiuril] 25 mg PO DAILY #30 tab 10/18/17 hydroCHLOROthiazide [Hydrodiuril] 25 mg PO DAILY #15 tab 11/19/17 DiphenhydrAMINE [Benadryl] 50 mg PO Q4 PRN #30 cap 12/06/17 Hydrocortisone 1% Cream [Cortizone 1 dap TOP BID #1 tube 12/06/17 1% Cream] Ibuprofen [Motrin Tab] 1 tab PO Q6 PRN #15 tab 03/05/18 Meloxicam [Mobic] 15 mg PO DAILY #30 tab 04/03/18 Compression Socks, Medium [Futuro 1 each TOP ONCE PRN #1 each 08/09/18 Restoring] - Allergies Allergies/Adverse Reactions: Allergies Allergy/AdvReac Type Severity Reaction Status Date / Time divalproex sodium Allergy RASH Verified 08/09/18 23:06 [From Depakote] haloperidol [From Haldol] Allergy RASH Verified 08/09/18 23:06 haloperidol lactate Allergy RASH Verified 08/09/18 23:06 [From Haldol] olanzapine [From Zyprexa] Allergy RASH Verified 08/09/18 23:06 risperidone [From Risperdal] Allergy RASH Verified 08/09/18 23:06 Review of Systems ROS Statement: Except As Marked, All Systems Reviewed And Found Negative Musculoskeletal: Positive for: Other (ANKLE PAIN/EDEMA) Physical Exam - Reviewed Nursing Documentation Reviewed: Yes Vital Signs Reviewed: Yes - Physical Exam Appears: Positive for: Well, Non-toxic, No Acute Distress Head Exam: Positive for: ATRAUMATIC, NORMAL INSPECTION, NORMOCEPHALIC Skin: Positive for: Normal Color, Warm, DRY Eye Exam: Positive for: EOMI, Normal appearance, PERRL ENT: Positive for: Normal ENT Inspection Neck: Positive for: Normal, Painless ROM Cardiovascular/Chest: Positive for: Regular Rate, Rhythm Respiratory: Positive for: CNT, Normal Breath Sounds Gastrointestinal/Abdominal: Positive for: Normal Exam, Soft Back: Positive for: Normal Inspection Extremity: Positive for: Normal ROM, Swelling (BILATERAL LOWER LEG/ANKLE EDEMA. 2+ DP/PT) Neurological/Psych: Positive for: Awake, Alert, Normal Tone Disposition - Clinical Impression Clinical Impression: Lower extremity edema - Patient ED Disposition Is Patient to be Admitted: No - Disposition Referrals: [facility] [Outside] Disposition: Routine/Home Disposition Time: 23:14 Condition: FAIR Prescriptions: Compression Socks, Medium [Futuro Restoring] 1 each TOP ONCE PRN #1 each PRN Reason: Swelling Instructions: Dependent Edema (DC)
[2018-08-09 23:23] VITALS: BP 124/76; PULSE 71; RESP 16; TEMP 98.9; O2SAT 97
== END 2018-08-09 23:54 | disposition home or self-care (01) ==
LOC: H.ER 22:49
DX: M25.572 Pain in left ankle and joints of left foot (principal); M25.571 Pain in right ankle and joints of right foot; R60.0 Localized edema; Z86.59 Personal history of other mental and behavioral disorders; I10 Essential (primary) hypertension; Z88.8 Allergy status to other drugs, medicaments and biological substances

== ENCOUNTER 2018-09-11 22:47 | Emergency (ER) | payer MEDICARE, MEDICAID ==
[2018-09-11 22:47] VITALS: BMI 28.1
[2018-09-12 00:53] VITALS: BP 123/90; PULSE 76; RESP 17; TEMP 97.9
[2018-09-12 00:55] VITALS: O2SAT 96
--- NOTE | 2018-09-12 00:55 | ED PDOC ---
HPI: General Adult Time Seen by Provider: 09/11/18 23:00 Chief Complaint (Nursing): Med Refill Chief Complaint (Provider): Medication refill, denies complaint Additional Complaint(s): 48 yo female with history of HTN presents for medication refill. PT states that she has not head pain, chest pain, SOB. Pt reports taking norvasc but does not know dose. PT denies not have prescription bottle Past Medical History Reviewed: Historical Data, Nursing Documentation, Vital Signs Vital Signs: Last Vital Signs Temp 98.4 F 09/11/18 22:51 Pulse 72 09/11/18 22:51 Resp 16 09/11/18 22:51 BP 154/97 H 09/11/18 22:51 Pulse Ox 96 09/11/18 22:51 Primary Care Provider: FAMILY PROVIDER,NO - Medical History PMH: Bipolar Disorder, Depression, HTN, Hypothyroidism, Schizophrenia Denies: Diabetes, Hepatitis, HIV, Chronic Kidney Disease, Seizures, Sexually Transmitted Disease - Surgical History Surgical History: Cholecystectomy - Family History Family History: States: Unknown Family Hx - Living Arrangements Living Arrangements: Alone - Social History Current smoker - smoking cessation education provided: No - Home Medications Home Medications: Ambulatory Orders Medication Instructions Recorded hydroCHLOROthiazide [Hydrodiuril] 25 mg PO DAILY #30 tab 05/05/17 Hydrochlorothiazide [Microzide] 25 mg PO DAILY #60 cap 07/11/17 Potassium Chloride 10 meq PO DAILY #30 capsule.er 07/11/17 Azithromycin [Zithromax] 250 mg PO DAILY #6 tab 07/25/17 DiphenhydrAMINE [Benadryl] 25 mg PO Q6H #1 bottle 07/25/17 Hydrocortisone [Hydrocortisone 1 applic TOP TID #1 tube 07/25/17 2.5% Cream] Ibuprofen [Motrin] 600 mg PO Q6 PRN #20 tab 08/16/17 Potassium Chloride [Klor-Con 10 meq PO DAILY #30 capsule.er 09/14/17 Sprinkle] hydroCHLOROthiazide [Hydrodiuril] 25 mg PO DAILY #30 tab 09/14/17 hydroCHLOROthiazide [Hydrodiuril] 25 mg PO DAILY #30 tab 10/18/17 hydroCHLOROthiazide [Hydrodiuril] 25 mg PO DAILY #15 tab 11/19/17 DiphenhydrAMINE [Benadryl] 50 mg PO Q4 PRN #30 cap 12/06/17 Hydrocortisone 1% Cream [Cortizone 1 dap TOP BID #1 tube 12/06/17 1% Cream] Ibuprofen [Motrin Tab] 1 tab PO Q6 PRN #15 tab 03/05/18 Meloxicam [Mobic] 15 mg PO DAILY #30 tab 04/03/18 Compression Socks, Medium [Futuro 1 each TOP ONCE PRN #1 each 08/09/18 Restoring] - Allergies Allergies/Adverse Reactions: Allergies Allergy/AdvReac Type Severity Reaction Status Date / Time divalproex sodium Allergy RASH Verified 08/09/18 23:06 [From Depakote] haloperidol [From Haldol] Allergy RASH Verified 08/09/18 23:06 haloperidol lactate Allergy RASH Verified 08/09/18 23:06 [From Haldol] olanzapine [From Zyprexa] Allergy RASH Verified 08/09/18 23:06 risperidone [From Risperdal] Allergy RASH Verified 08/09/18 23:06 Review of Systems ROS Statement: Except As Marked, All Systems Reviewed And Found Negative Constitutional: Negative for: Fever, Chills ENT: Negative for: Ear Discharge Cardiovascular: Negative for: Chest Pain, Palpitations Respiratory: Negative for: Cough, Shortness of Breath Gastrointestinal: Negative for: Nausea, Vomiting, Abdominal Pain Physical Exam - Reviewed Nursing Documentation Reviewed: Yes Vital Signs Reviewed: Yes - Physical Exam Appears: Positive for: Well, Non-toxic, No Acute Distress Head Exam: Positive for: ATRAUMATIC, NORMAL INSPECTION, NORMOCEPHALIC Skin: Positive for: Normal Color, Warm, DRY Eye Exam: Positive for: Normal appearance ENT: Positive for: Normal ENT Inspection Neck: Positive for: Normal, Painless ROM Cardiovascular/Chest: Positive for: Regular Rate, Rhythm Respiratory: Positive for: Normal Breath Sounds. Negative for: Accessory Muscle Use Gastrointestinal/Abdominal: Positive for: Normal Exam, Soft Back: Positive for: Normal Inspection Extremity: Positive for: Normal ROM Neurological/Psych: Positive for: Awake, Alert, Normal Tone - ECG O2 Sat by Pulse Oximetry: 96 Medical Decision Making Medical Decision Making: PT sleeping comfortable in ER during ER stay. BP normal on re-evaluation. No documentation of patient taking norvasc. Discussed f/u with PMD for blood pressure medications. Disposition - Clinical Impression Clinical Impression: Encounter for medical screening examination - Patient ED Disposition Is Patient to be Admitted: No - Disposition Disposition: Routine/Home Disposition Time: 00:55 Condition: GOOD Instructions: Your Normal Heart Forms: [facility] (Arabic)
== END 2018-09-12 01:05 | disposition home or self-care (01) ==
LOC: H.ER 22:47
DX: Z76.0 Encounter for issue of repeat prescription (principal)

== ENCOUNTER 2018-09-16 10:47 | Emergency (ER) | payer MEDICARE, MEDICAID ==
[2018-09-16 10:51] VITALS: BMI 30.7
[2018-09-16] MEDS ORDERED: Sodium Chloride 0.9% 1,000 ML IV STA (10:59)
--- NOTE | 2018-09-16 11:02 | ED PDOC ---
HPI: Abdomen Time Seen by Provider: 09/16/18 10:55 History Per: Patient Onset/Duration Of Symptoms: Days (1) Current Symptoms Are (Timing): Still Present Severity: Mild Location Of Pain/Discomfort: Epigastric Associated Symptoms: Nausea, Vomiting. denies: Fever, Diarrhea Exacerbating Factors: None Alleviating Factors: None Additional Complaint(s): Epigastric pain assoc with nausea and vomiting since this AM. Denies fever or diarrhea. denies chest pain. Past Medical History Vital Signs: Last Vital Signs Temp 98.7 F 09/16/18 10:51 Pulse 70 09/16/18 10:51 Resp 17 09/16/18 10:51 BP 163/84 H 09/16/18 10:51 Pulse Ox 97 09/16/18 10:51 - Medical History PMH: Bipolar Disorder, Depression, HTN, Hypothyroidism, Schizophrenia Denies: Diabetes, Hepatitis, HIV, Chronic Kidney Disease, Seizures, Sexually Transmitted Disease - Surgical History Surgical History: Cholecystectomy - Family History Family History: States: Unknown Family Hx - Home Medications Home Medications: Ambulatory Orders Medication Instructions Recorded hydroCHLOROthiazide [Hydrodiuril] 25 mg PO DAILY #30 tab 05/05/17 Hydrochlorothiazide [Microzide] 25 mg PO DAILY #60 cap 07/11/17 Potassium Chloride 10 meq PO DAILY #30 capsule.er 07/11/17 Azithromycin [Zithromax] 250 mg PO DAILY #6 tab 07/25/17 DiphenhydrAMINE [Benadryl] 25 mg PO Q6H #1 bottle 07/25/17 Hydrocortisone [Hydrocortisone 1 applic TOP TID #1 tube 07/25/17 2.5% Cream] Ibuprofen [Motrin] 600 mg PO Q6 PRN #20 tab 08/16/17 Potassium Chloride [Klor-Con 10 meq PO DAILY #30 capsule.er 09/14/17 Sprinkle] hydroCHLOROthiazide [Hydrodiuril] 25 mg PO DAILY #30 tab 09/14/17 hydroCHLOROthiazide [Hydrodiuril] 25 mg PO DAILY #30 tab 10/18/17 hydroCHLOROthiazide [Hydrodiuril] 25 mg PO DAILY #15 tab 11/19/17 DiphenhydrAMINE [Benadryl] 50 mg PO Q4 PRN #30 cap 12/06/17 Hydrocortisone 1% Cream [Cortizone 1 dap TOP BID #1 tube 12/06/17 1% Cream] Ibuprofen [Motrin Tab] 1 tab PO Q6 PRN #15 tab 03/05/18 Meloxicam [Mobic] 15 mg PO DAILY #30 tab 04/03/18 Compression Socks, Medium [Futuro 1 each TOP ONCE PRN #1 each 08/09/18 Restoring] Ondansetron [Zofran] 4 mg PO Q8H #10 tab 09/16/18 amLODIPine [Norvasc] 5 mg PO DAILY #30 tab 09/16/18 - Allergies Allergies/Adverse Reactions: Allergies Allergy/AdvReac Type Severity Reaction Status Date / Time divalproex sodium Allergy RASH Verified 08/09/18 23:06 [From Depakote] haloperidol [From Haldol] Allergy RASH Verified 08/09/18 23:06 haloperidol lactate Allergy RASH Verified 08/09/18 23:06 [From Haldol] olanzapine [From Zyprexa] Allergy RASH Verified 08/09/18 23:06 risperidone [From Risperdal] Allergy RASH Verified 08/09/18 23:06 Review of Systems ROS Statement: Except As Marked, All Systems Reviewed And Found Negative Constitutional: Negative for: Fever Cardiovascular: Negative for: Chest Pain Gastrointestinal: Positive for: Nausea, Vomiting, Abdominal Pain. Negative for: Diarrhea Physical Exam - Reviewed Nursing Documentation Reviewed: Yes Vital Signs Reviewed: Yes - Physical Exam Appears: Positive for: Non-toxic, No Acute Distress Head Exam: Positive for: ATRAUMATIC, NORMAL INSPECTION, NORMOCEPHALIC Skin: Positive for: Normal Color, Warm, DRY Eye Exam: Positive for: EOMI, Normal appearance, PERRL ENT: Positive for: Normal ENT Inspection Neck: Positive for: Normal, Painless ROM Cardiovascular/Chest: Positive for: Regular Rate, Rhythm Respiratory: Positive for: CNT, Normal Breath Sounds Gastrointestinal/Abdominal: Positive for: Soft. Negative for: Tenderness, Distended Back: Positive for: Normal Inspection Extremity: Positive for: Normal ROM Neurological/Psych: Positive for: Awake, Alert, Normal Tone - Laboratory Results Result Diagrams: 09/16/18 11:40 09/16/18 11:40 - ECG O2 Sat by Pulse Oximetry: 97 - Progress Re-evaluation Time: 13:05 Condition: Improved (No vomiting or abdominal pain) Disposition - Clinical Impression Clinical Impression: Gastroenteritis - Patient ED Disposition Is Patient to be Admitted: No Counseled Patient/Family Regarding: Studies Performed, Diagnosis, Need For Followup, Rx Given - Disposition Disposition: Routine/Home Disposition Time: 13:06 Condition: FAIR Prescriptions: amLODIPine [Norvasc] 5 mg PO DAILY #30 tab Ondansetron [Zofran] 4 mg PO Q8H #10 tab Instructions: Gastroenteritis (ED)
[2018-09-16 11:50] LABS: BASO % 0.5 % (0.0-2.0); EOS % 0.5 % (0.0-4.0); HEMOGLOBIN 11.9 g/dL (12.0-16.0); LYMPH # 0.7 K/uL (1.0-4.3); LYMPH % 9.5 % (20.0-40.0); MEAN CELL VOLUME 87.9 fl (81.0-99.0); MEAN CORPUSCULAR HEMOGLOBIN 29.4 pg (27.0-31.0); MEAN CORPUSCULAR HGB CONC 33.4 g/dL (33.0-37.0); MEAN PLATELET VOLUME 8.3 fl (7.2-11.7); MONO # 0.5 K/uL (0.0-0.8); MONO % 7.2 % (0.0-10.0); NEUT # 5.8 K/uL (1.8-7.0); NEUT % 82.3 % (50.0-75.0); NRBC % 0.1 % (0.0-0.0); PLATELET COUNT 222 K/uL (130-400); RBC 4.05 Mil/uL (3.80-5.20); RED CELL DISTRIBUTION WIDTH 14.1 % (11.5-14.5)
[2018-09-16 12:00] LABS: ALB/GLOB RATIO 1.3 (1.0-2.1); ALBUMIN 4.1 g/dL (3.5-5.0); ALT/SGPT 20 U/L (9-52); AST/SGOT 20 U/L (14-36); BLOOD UREA NITROGEN 12 mg/dl (7-17); CALCIUM 8.4 mg/dL (8.4-10.2); GFR NON-AFRICAN AMERICAN > 60
[2018-09-16] MEDS ORDERED: Potassium Chloride 20 mEq ER Tab PO ONE ×2 (12:07→13:51)
[2018-09-16 13:08] LABS: BANDS 2 % (0-2); LYMPHOCYTE 10 % (20-50); MONOCYTE 4 % (0-10); NEUTROPHIL 82 % (42-75); REACTIVE LYMPHOCYTES 2 % (0-0); TOTAL CELLS COUNTED 100
[2018-09-16 13:09] LABS: ANISOCYTOSIS SLIGHT; GIANT PLATELETS PRESENT; LARGE PLATELETS PRESENT; OVALOCYTES SLIGHT; PLATELET ESTIMATE NORMAL (NORMAL); POIKILOCYTOSIS SLIGHT; SPHEROCYTES SLIGHT
[2018-09-16 13:54] VITALS: BP 132/74; PULSE 89; RESP 18; TEMP 98.3; O2SAT 98
--- NOTE | 2018-09-16 17:14 | CARD ---
APPROVED REPORT Date of service: 09/16/2018 EKG Measurement Heart [id number] <Conclusion> Normal sinus rhythm Normal ECG
== END 2018-09-16 13:53 | disposition home or self-care (01) ==
LOC: H.ER 10:47 → SUPCPDRO 10:47 → H.ER 13:53
DX: K52.9 Noninfective gastroenteritis and colitis, unspecified (principal); Z86.59 Personal history of other mental and behavioral disorders; I10 Essential (primary) hypertension; E03.9 Hypothyroidism, unspecified; Z79.899 Other long term (current) drug therapy; Z88.8 Allergy status to other drugs, medicaments and biological substances
CPT/HCPCS: 80053; 81025; 85025; 93005; 96374; 96375; 99285; J2405; J7030